=== PATIENT | female | born 1980 | race Two or more races ===

== ENCOUNTER 2020-07-03 12:09 | Emergency (ER) | payer MEDICAID ==
[~2020-07-03] VITALS: Ht 154.9 cm; Wt 63.5 kg
[2020-07-03 12:20] VITALS: BP_SYST 154
--- NOTE | 2020-07-03 12:25 | NUR ---
RECEIVED AND IN ROOM, HERE FOR C/O COUGH X 1 MONTH AND CP WITH COUGHING INTERMITTENTLY. NO DYSPNEA, RESP UNLABORED, CLEAR SPEECH. SKIN WARM AND DRY
--- NOTE | 2020-07-03 12:43 | NUR ---
DR MENG IN TO ASSESS
--- NOTE | 2020-07-03 13:05 | NUR ---
CALM, ALERT, RESP UNLABORED, FREQUENT COUGH, DENIES CP/SOB
[2020-07-03] MEDS ORDERED: CETI-80 PO (13:25)
[2020-07-03] MEDS ORDERED: BENZ-16 PO (13:25)
[2020-07-03] MEDS ORDERED: PRED20TA PO (13:25)
[2020-07-03 13:30] VITALS: BP_SYST 136
--- NOTE | 2020-07-03 13:30 | NUR ---
Patient given written and verbal discharge instructions and verbalizes understanding. ER MD discussed with patient the results and treatment provided. Patient in stable condition. ID arm band removed. Rx of PREDNISONE given. Patient educated on pain management and to follow up with PMD. Pain Scale 0/10 Opportunity for questions provided and answered. Medication side effect fact sheet provided.
== END 2020-07-03 13:30 | disposition home or self-care (01) ==
LOC: SED 12:09
DX: R07.89 Other chest pain (principal); R05 Cough
CPT/HCPCS: 71045; 93005; 99283

== ENCOUNTER 2021-09-27 08:34 | Emergency (ER) | payer MEDICAID, OTHER ==
[~2021-09-27] VITALS: Ht 154.9 cm; Wt 63.5 kg
[~2021-09-27 08:34] MED LIST: BENZ-16 PO; CETI-80 PO; PRED20TA PO
[2021-09-27 08:52] VITALS: BP_SYST 112
--- NOTE | 2021-09-27 09:00 | NUR ---
Patient to ER bed 2 for evaluation. Side rails up. Report given to Neal VALENCIA.
--- NOTE | 2021-09-27 09:01 | NUR ---
ERMD AT BEDSIDE
[2021-09-27] MEDS ORDERED: OXYCODONE/ACETAMINOPHEN 5-325 TABLET PO ONE (10:15)
[2021-09-27] MEDS ORDERED: KETOROLAC TROMETHAMINE 60 MG/2 ML VIAL IM ONE (10:15)
[2021-09-27] MEDS ORDERED: DIAZEPAM 5 MG TABLET (VALIUM) PO ONE (10:15)
[2021-09-27] MEDS ORDERED: DIAZ5TAB4 PO (10:40)
[2021-09-27] MEDS ORDERED: IBUP-1969 PO (10:40)
[2021-09-27] MEDS ORDERED: MED4 PO (10:40)
[2021-09-27] MEDS ORDERED: OXYC-128 PO (10:40)
--- NOTE | 2021-09-27 11:14 | NUR ---
Patient given written and verbal discharge instructions and verbalizes understanding. ER MD discussed with patient the results and treatment provided. Patient in stable condition. ID arm band removed. Rx of given. Patient educated on pain management and to follow up with PMD. Pain Scale . Opportunity for questions provided and answered. Medication side effect fact sheet provided.
--- NOTE | 2021-09-27 11:14 | NUR ---
A/OX4 VSS VERBALIZED UNDERSTANDING OF DC INSTRUCTIONS, ALL QUESTIONS ANSWERED, AMBULATED WITH STAEDY GAIT.
== END 2021-09-27 11:14 | disposition home or self-care (01) ==
LOC: SED 08:34
DX: M43.6 Torticollis (principal); M79.10 Myalgia, unspecified site; Z79.899 Other long term (current) drug therapy
CPT/HCPCS: 96372; 99283; J1885

== ENCOUNTER 2022-08-25 23:08 | Emergency (ER) | payer OTHER ==
[~2022-08-25 23:08] MED LIST changes: +DIAZ5TAB4 PO; +IBUP-1969 PO; +MED4 PO; +OXYC-128 PO
[2022-08-25 23:10] VITALS: BP_SYST 135
--- NOTE | 2022-08-25 23:20 | NUR ---
ER at bedside examining patient.
[2022-08-25 23:41] LABS: BASOPHILS % (AUTO) 0.2 % (0.0-2.0); EOSINOPHILS # (AUTO) 0.3 K/uL (0.0-0.4); HEMATOCRIT 40.3 % (36-48); HEMOGLOBIN 13.6 g/dL (12.0-16.0); LYMPHOCYTES # (AUTO) 1.3 K/uL (1.0-5.5); LYMPHOCYTES % (AUTO) 13.8 % (20.5-51.5); MEAN CORPUSCULAR HEMOGLOBIN 29 pg (27-31); MEAN CORPUSCULAR HGB CONC 34 % (32-36); MEAN CORPUSCULAR VOLUME 87 fL (79.0-98.0); MONOCYTES # (AUTO) 0.6 K/uL (0.0-1.0); MONOCYTES % (AUTO) 6.9 % (1.7-9.3); NEUTROPHILS # (AUTO) 6.9 K/uL (1.8-7.7); NEUTROPHILS % (AUTO) 76.1 % (40.0-70.0); PLATELET COUNT (AUTO) 200 K/uL (130-430); RED BLOOD CELL COUNT(AUTO) 4.64 MIL/uL (4.2-6.2); RED CELL DISTRIBUTION WIDTH 13.3 % (9.0-15.0)
--- NOTE | 2022-08-25 23:50 | NUR ---
PT WAS SWAB FOR COVID AND INFLUENZA A&B.
[2022-08-25 23:54] LABS: ANION GAP 7 (5-15); CALCIUM 8.5 mg/dL (8.4-11.0); CHLORIDE 100 mmol/L (98-107); CREATININE 0.81 mg/dL (0.55-1.30); GFR AFRICAN AMERICAN 100 mL/min (>90); GLUCOSE 105 mg/dL (70-99); UREA NITROGEN, BLOOD 9 mg/dL (8-21)
[2022-08-26 00:01] LABS: ALANINE AMINOTRANSFERASE 44 U/L (12-78); ALBUMIN 3.7 g/dL (3.4-4.8); ASPARTATE AMINOTRANSFERASE 20 U/L (10-37); TOTAL BILIRUBIN 0.3 mg/dL (0.0-1.0)
--- NOTE | 2022-08-26 00:35 | NUR ---
Placed in room 07 . Placed on stopboard assembler, blood pressure machine and pulse oximeter. To gown for exam. Side rails up. Report given to YULIANA FRANKEL
[2022-08-26] MEDS ORDERED: KETOROLAC TROMETHAMINE 30 MG VIAL IVP ONE (00:45)
[2022-08-26] MEDS ORDERED: NACL 0.9% 1,000 ML IV ONE (00:45)
--- NOTE | 2022-08-26 00:45 | NUR ---
PT BIB SELF FROM HOME, AMBULATED TO BED 7. PT A&Ox4, ABLE TO MAKE NEEDS KNOWN. PT C/O CHEST PAIN BEGINNING TODAY. PT RATES PAIN /10. PT DESCRIBES PAIN BURNING. PT DENIES N/V/D. PT STATES SHE HAS HAD A COLD FOR 2 DAYS. PT STATES SHE HAS BEEN TAKING DAYQUIL FOR HER COLD. SAFETY MEASURES IN PLACE.
[2022-08-26] MEDS ORDERED: PSEU30TA36 PO (03:06)
[2022-08-26] MEDS ORDERED: GUAI-723 PO (03:06)
[2022-08-26] MEDS ORDERED: BENZ100C92 PO (03:06)
[2022-08-26] MEDS ORDERED: PRED20TA PO (03:18)
[2022-08-26] MEDS ORDERED: ALBMDI INH (03:18)
[2022-08-26 03:41] VITALS: BP_SYST 111
--- NOTE | 2022-08-26 03:41 | NUR ---
Patient given written and verbal discharge instructions and verbalizes understanding. ER Dr Willis discussed with patient the results and treatment provided. Patient in stable condition. ID arm band removed. IV catheter removed intact and dressing applied, no active bleeding. Rx of Ventolin,Benzonatate, Mucinex, Prednisone, Sudafed given. Patient educated on pain management and to follow up with PMD. Pain Scale 0/10. Opportunity for questions provided and answered. Medication side effect fact sheet provided.
== END 2022-08-26 03:41 | disposition home or self-care (01) ==
LOC: SED 23:08
DX: J20.9 Acute bronchitis, unspecified (principal); R79.1 Abnormal coagulation profile; R05.9 Cough, unspecified; R09.81 Nasal congestion; R50.9 Fever, unspecified; Z79.899 Other long term (current) drug therapy; Z20.822 Contact with and (suspected) exposure to COVID-19
CPT/HCPCS: 99285; 71045; 87426; 80053; 82550; 83880; 85025; 85379; 84484; 36415; 81025; 87804 ×2; 96374; 71275; 96361; 76376; J1885; Q9967; J7030